=== PATIENT | female | born 1970 | race Caucasian/White ===

== ENCOUNTER 2017-06-17 11:47 | Emergency (ER) | payer OTHER ==
[2017-06-17 12:28] VITALS: BP 159/100
--- NOTE | 2017-06-17 12:59 | UC ---
Complaint Female HPI - HPI Summary HPI Summary: Pt presents with UTI symptoms. She tells me that 4 days ago she had sexual intercourse and did not clean up well or pee after. The next day she began to experience urinary pressure, frequency, and burning. Denies fever, chills, SOB, chest pain, abdominal pain, N/V/D/C, or hematuria Her BP is elevated today. She has not been having any dizziness, headache, vision changes, or weakness. Her PCP is aware of this and it has been a discussion at previous visits. She will follow up with her PCP for this. - History Of Current Complaint Chief Complaint: UCGU Stated Complaint: URINARY ISSUE Time Seen by Provider: 06/17/17 12:53 Hx Obtained From: Patient Hx Last Menstrual Period: implanon Onset/Duration: Gradual Onset Timing: Constant Severity Initially: Mild Severity Currently: Moderate Pain Intensity: 6 Pain Scale Used: 0-10 Numeric - Allergies/Home Medications Allergies/Adverse Reactions: Allergies Allergy/AdvReac Type Severity Reaction Status Date / Time Hydrocortisone [From Otocort] Allergy Itching Verified 02/24/17 10:42 Neomycin [From Otocort] Allergy Itching Verified 02/24/17 10:42 Polymyxin B [From Otocort] Allergy Itching Verified 02/24/17 10:42 Home Medications: Home Medications Adapalene-Benzoyl Peroxide [Epiduo Forte 0.3-2.5 %] 1 gel EX 06/17/17 [History] Azelastine HCl 137 mcg NA 06/17/17 [History] Naproxen Sodium [Naproxen Sodium 220 mg] 220 mg PO 06/17/17 [History] PMH/Surg Hx/FS Hx/Imm Hx Previously Healthy: Yes Psychological History: Anxiety, Depression - Surgical History Surgical History: Yes Surgery Procedure, Year, and Place: tonsilectomy-1984; thyroidectomy-partial; gallbladder; - Family History Known Family History: Positive: Hypertension - Social History Occupation: Employed Full-time Lives: With Family Alcohol Use: Occasionally Substance Use Type: None Smoking Status (MU): Never Smoked Tobacco Review of Systems Constitutional: Negative Respiratory: Negative Cardiovascular: Negative Gastrointestinal: Negative Genitourinary: Dysuria, Frequency, Urgency Neurovascular: Negative All Other Systems Reviewed And Are Negative: Yes Physical Exam Triage Information Reviewed: Yes Appearance: Well-Appearing, Well-Nourished Vital Signs: Initial Vital Signs Temp 98.4 F 06/17/17 12:24 Pulse 90 06/17/17 12:24 Resp 18 06/17/17 12:24 BP 159/100 06/17/17 12:24 Pulse Ox 98 06/17/17 12:24 Vital Signs Reviewed: Yes Neck: Positive: Supple, Nontender, No Lymphadenopathy Respiratory: Positive: Chest non-tender, Lungs clear, Normal breath sounds, No respiratory distress, No accessory muscle use Cardiovascular: Positive: RRR, No Murmur, Pulses Normal Abdomen Description: Positive: Nontender, No Organomegaly, Soft. Negative: CVA Tenderness (R), CVA Tenderness (L), Distended, Guarding Bowel Sounds: Positive: Present Neurological: Positive: Alert Psychological: Positive: Age Appropriate Behavior Skin: Negative: rashes Complaint Female Dx - Course Course Of Treatment: POC urine with 2+ blood, 3+ leuks, and trace protein. Will send for culture and rx Bactrim - Differential Dx/Diagnosis Differential Diagnosis/HQI/PQRI: Sexually Transmitted Disease, Urinary Tract Infection Provider Diagnoses: UTI. Elevated BP without diagnoses of HTN Discharge - Discharge Plan Condition: Stable Disposition: HOME Prescriptions: Sulfamethox/Trimethoprim DS* [Bactrim DS 800/160 TAB*] 1 tab PO BID #10 tab Patient Education Materials: Urinary Tract Infection in Women (ED) Referrals: Melissa Finn MD [Primary Care Provider] - Additional Instructions: If you develop a fever, SOB, chest pain, new or worsening symptoms - please call your PCP or go to the ED. Your blood pressure was high at todays visit. Please see your primary provider within 4 weeks for recheck and re-evaluation.
--- NOTE | 2017-06-18 15:37 | UC ---
- Progress Note Progress Note: if not better should be rechecked if better should finish antibiotic Course/Dx - Course Course Of Treatment: POC urine with 2+ blood, 3+ leuks, and trace protein. Will send for culture and rx Bactrim
== END 2017-06-17 13:05 | disposition home or self-care (01) ==
LOC: UCEAST 11:47
DX: N39.0 Urinary tract infection, site not specified (principal); R03.0 Elevated blood-pressure reading, without diagnosis of hypertension; Z88.8 Allergy status to other drugs, medicaments and biological substances; Z88.1 Allergy status to other antibiotic agents
CPT/HCPCS: 81003; 87086; 99212; G0463